=== PATIENT | female | born 2000 | race American Indian/Alaskan Native ===

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

== ENCOUNTER 2018-08-19 13:08 | Outpatient (CLI) | payer OTHER | END 2018-08-19 13:09 | disposition home or self-care (01) | LOC: LAB 13:08 | PROVIDERS: ATTEND Obstetrics & Gynecology | CPT/HCPCS: 86850; 86900; 86901 ==

== ENCOUNTER 2018-10-29 17:24 | Outpatient (CLI) | payer MEDICAID ==
[2018-10-29 20:27] VITALS: BP 128/62
--- NOTE | 2018-10-29 20:42 | Ultrasound Report ---
US OB limited, US OB BPP wo non-stress INDICATION / CLINICAL INFORMATION: CASTRO. Assess well-being COMPARISON: None available. FINDINGS: breathing movement = 2 Gross body movement = 2 tone = 2 Qualitative amniotic fluid volume = 2 Total biophysical score = 8/8 Amniotic fluid index is 12.3 cm. Presentation is Cephalic. heart rate is 148 beats per minute. There is a grade 3 placenta. IMPRESSION: biophysical profile = 10/27 Amniotic fluid index is within normal limits. Signer Name: Chapincito Frost MD Signed: 10/29/2018 8:38 PM Workstation Name: [id number]
== END 2018-10-29 20:55 | disposition home or self-care (01) ==
LOC: TRG 17:24
PROVIDERS: ATTEND Obstetrics & Gynecology
DX: O47.1 False labor at or after 37 completed weeks of gestation (principal); Z3A.39 39 weeks gestation of pregnancy
CPT/HCPCS: 59025; 76815; 76819

== ENCOUNTER 2018-10-30 02:27 | Inpatient (IN) | payer MEDICAID ==
[2018-10-30] MEDS ORDERED: NORCO 5/325 PO ONE (05:06)
[2018-10-30] MEDS ORDERED: XYLOCAINE 2% INFILTRATI ONE (07:58)
[2018-10-30] MEDS ORDERED: ZOFRAN IV PRN (07:58)
[2018-10-30] MEDS ORDERED: BRETHINE SUB-Q PRN (07:58)
[2018-10-30] MEDS ORDERED: PITOCin/NS 20 UNIT/1000ML DRIP 20 UNITS/1,000 ML BAG IV SCH (08:00)
[2018-10-30] MEDS ORDERED: AMPICILLIN/NS 2 GM/100 ML 2 GM/100 ML BAG IV ONE (08:08)
--- NOTE | 2018-10-30 08:16 | History and Physical Report ---
History of Present Illness Date of examination: 10/30/18 Date of admission: 10/30/18 07:09 Chief complaint: Labor History of present illness: 18 year old presents to L&D in active labor. Patient denies leaking of fluid or vaginal bleeding. Patient received care at [facility]; was able to access records. LMP 01/25/18. EDC 11/01/18. significant for the following: abnormal quad screen (increased risk for trisomy 21; amnio normal); chlamydia early in (treated and cured); late transfer of care at 29 weeks; GBS bacteriuria; rubella nonimmune and varicella nonimmune; anemia (supplemented with iron). labs are as follows: A+, antibody screen negative, hepatitis B surface antigen negative, HIV negative, RPR nonreactive, chlamydia negative, gonorrhea negative, GBS positive, hemoglobin electrophoresis normal, 1 hour sugar test 110, rubella nonimmune, varicella nonimmune. 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 denies: gonorrhea, hepatitis B, hepatitis C, herpes, HIV, syphilis, trichomonas Family/Genetic History: none Social history: single, lives with family, full code. denies: smoking, alcohol abuse, prescription drug abuse, IV drug use - Obstetrical History Expected Date of Delivery: 11/01/18 Actual Gestation: 39 Week(s) 5 Day(s) : 1 Para: 0 Hx # Term Pregnancies: 0 Number of Pregnancies: 0 Spontaneous Abortions: 0 Induced : 0 Number of Living Children: 0 Medications and Allergies Allergies Allergy/AdvReac Type Severity Reaction Status Date / Time No Known Allergies Allergy Verified 08/12/17 19:04 Active Meds: Active Medications Butorphanol Tartrate (Stadol) 2 mg IV Q2H PRN PRN Reason: Pain , Severe (7-10) Ephedrine Sulfate (Ephedrine Sulfate) 10 mg IV Q2M PRN PRN Reason: Hypotension Oxytocin/Sodium Chloride (Pitocin/Ns 20 Unit/1000ml Drip) 20 units in 1,000 mls @ 125 mls/hr IV DIRECT PAULY Lactated Ringer's (Lactated Ringers) 1,000 mls @ 125 mls/hr IV DIRECT PAULY Ampicillin Sodium (Ampicillin/Ns 2 Gm/100 Ml) 2 gm in 100 mls @ 100 mls/hr IV ONCE ONE; Protocol Stop: 10/30/18 09:07 Lidocaine (Xylocaine 2%) 20 ml INFILTRATI ONCE ONE Stop: 10/30/18 07:59 Ondansetron HCl (Zofran) 4 mg IV Q8H PRN PRN Reason: Nausea And Vomiting Terbutaline Sulfate (Brethine) 0.25 mg SUB-Q ONCE PRN PRN Reason: Hyperstimulation/Hypertonicity Review of Systems All systems: negative (regular contractions) - Vital Signs Vital signs: Vital Signs Pulse BP 96 H 137/89 10/30/18 02:42 10/30/18 02:42 Temp Pulse Resp BP Pulse Ox 98.1 F 112 H 18 118/69 10/30/18 02:43 10/30/18 07:58 10/30/18 05:24 10/30/18 07:58 - Physical Exam Abdomen: Positive: normal appearance, soft. Negative: distention, tenderness, guarding, rigidity Genitourinary (Female): Positive: normal external genitalia, normal perenium. Negative: perineal/vulvar lesions (no lesions seen on careful exam with bright light upon admission) Vagina: Positive: normal moisture Uterus: Positive: enlarged. Negative: tender Anus/Rectum: Positive: normal perianal skin Extremities: Positive: normal. Negative: tenderness, edema - Obstetrical FHR: category 1 Uterine Contraction Monitor Mode: External Cervical Dilatation: 4.5 Cervical Effacement Percentage: 80 station: -2 Uterine Contraction Pattern: Regular Uterine Contraction Intensity: Moderate Results All other labs normal. Assessment and Plan A: at 39 weeks, 5 days gestation. Active labor. GBS positive. P: Admit. GBS prophylaxis. Continuous EFM. Anticipate vaginal .
[2018-10-30] MEDS: STADOL IV PRN ×2 (08:55→11:24)
[2018-10-30] MEDS: LACTATED RINGERS 1,000 ML IV SCH ×3 (08:56→14:12)
[2018-10-30 11:05] LABS: Hepatitis C Virus Antibody Non-Reactive (NonReactive)
[2018-10-30 11:29] LABS: Hematocrit 36.3 % (30.3-42.9); Hemoglobin 12.1 gm/dl (10.1-14.3); Mean Corpuscular HGB Conc 33 % (30-34); Mean Corpuscular Volume 85 fl (79-97); Platelet Count 262 K/mm3 (140-440); Red Blood Count 4.28 M/mm3 (3.65-5.03); Red Cell Distribution Width 14.6 % (13.2-15.2)
[2018-10-30] MEDS ORDERED: SUBLIMAZE ONE (12:16)
[2018-10-30] MEDS ORDERED: MARCAINE 0.25% INFILTRATI ONE (12:16)
[2018-10-30] MEDS ORDERED: NARCAN 2 MG/2 ML IV PRN (12:17)
--- NOTE | 2018-10-30 12:18 | Anesthesia Consultation ---
Anesthesia Consult and Med Hx Date of service: 10/30/18 - Airway Anesthetic Teeth Evaluation: Good ROM Head & Neck: Adequate Mental/Hyoid Distance: Adequate Mallampati Class: Class II Intubation Access Assessment: Good - Pulmonary Exam CTA: Yes - Cardiac Exam Cardiac Exam: RRR - Pre-Operative Health Status ASA Pre-Surgery Classification: ASA2, Emergency Proposed Anesthetic Plan: Epidural - Pulmonary Hx Asthma: No - Cardiovascular System Hx Hypertension: No - Central Nervous System Hx Seizures: No Hx Psychiatric Problems: No - Endocrine Hx Renal Disease: No Hx Hypothyroidism: No Hx Hyperthyroidism: No - Hematic Hx Anemia: No Hx Sickle Cell Disease: No - Other Systems Hx Alcohol Use: No
[2018-10-30] MEDS: AMPICILLIN/NS 1 GM/50 ML 1 GM/50 ML BAG IV SCH ×3 (14:07→22:10)
[2018-10-30] MEDS: fentaNYL-BUPIV 2 MCG/ML-0.125% 200 MCG/100 ML BAG EPIDURAL SCH ×2 (14:12→21:32)
--- NOTE | 2018-10-30 15:33 | Event Note ---
Date: 10/30/18 Patient is comfortable after receiving epidural. SVE 5.5/80/-1/bulging forebag. Category 1 heart rate tracing. Contractions have spaced. Will put in Pitocin orders for augmentation of labor. Discussed with patient risks and benefits of Pitocin augmentation of labor. Patient consented to Pitocin augmentation of labor.
[2018-10-30] MEDS: PITOCin/NS 30 UNIT/500ML 30 UNITS/500 ML BAG IV SCH ×2 (19:37→20:41)
[2018-10-31] MEDS: PITOCin/NS 30 UNIT/500ML 30 UNITS/500 ML BAG IV SCH (00:07)
[2018-10-31] MEDS: AMPICILLIN/NS 1 GM/50 ML 1 GM/50 ML BAG IV SCH (01:39)
--- NOTE | 2018-10-31 04:52 | Event Note ---
Date: 10/31/18 Patient states she feels she needs to push. SVE: rim/100/0. Small forebag felt.
--- NOTE | 2018-10-31 07:08 | Procedure Note ---
OB Delivery Note - Delivery Date of Delivery: 10/31/18 Surgeon: KEITH URBINA Estimated blood loss: 200cc - Vaginal Delivery presentation: vertex Delivery position: OA Intrapartum events: meconium Delivery induction: none Delivery augmentation: pitocin Delivery monitor: external FHT, external uterine Route of delivery: Delivery placenta: spontaneous Delivery cord: 3 umbilical vessels Episiotomy: none Delivery laceration: none Anesthesia: epidural Delivery comments: Spontaneous vaginal delivery at 05:26 of liveborn female weighing 7 lb. 2 oz. over intact perineum with apgars of 8/9. Epidural anesthesia. Meconium stained amniotic fluid noted with SROM just before delivery; NICU team in attendance at . Baby was vigorous and was placed skin to skin with mom immediately after . Spontaneous cry and respirations. Baby bulb suctioned and dried. 3 vessel cord double clamped and cut. Spontaneous delivery of intact placenta and membranes. EBL 200 cc. No lacerations noted. Vaginal sweep negative. Sponge count correct. Mother and baby stable.
[2018-10-31] MEDS ORDERED: TUCKS PAD TP PRN (08:34)
[2018-10-31] MEDS ORDERED: LANSINOH TP PRN (08:34)
[2018-10-31] MEDS ORDERED: TYLENOL PO PRN (08:34)
[2018-10-31] MEDS ORDERED: PHENERGAN PO PRN (08:34)
[2018-10-31] MEDS ORDERED: PHENERGAN PR PRN (08:34)
[2018-10-31] MEDS ORDERED: ZOFRAN IV PRN (08:34)
[2018-10-31] MEDS ORDERED: BENADRYL PO PRN (08:34)
[2018-10-31] MEDS: IBUPROFEN PO SCH ×3 (08:58→23:51)
[2018-10-31] MEDS ORDERED: SODIUM CHLORIDE FLUSH SYRINGE 10 ML IV NR (09:00)
[2018-10-31] MEDS ORDERED: DULCOLAX PR PRN (10:00)
[2018-10-31] MEDS: PRENATAL VITAMIN PO SCH (10:34)
[2018-10-31] MEDS: FEOSOL PO SCH (10:34)
[2018-10-31] MEDS: NORCO 5/325 PO PRN (10:35)
[2018-10-31] MEDS ORDERED: MILK OF MAGNESIA PO PRN (22:00)
[2018-11-01 05:14] LABS: Hematocrit 31.9 % (30.3-42.9); Hemoglobin 10.5 gm/dl (10.1-14.3)
[2018-11-01] MEDS: IBUPROFEN PO SCH ×3 (05:35→23:53)
[2018-11-01] MEDS: FEOSOL PO SCH (10:18)
[2018-11-01] MEDS: NORCO 5/325 PO PRN ×3 (10:18→22:13)
[2018-11-01] MEDS: PRENATAL VITAMIN PO SCH (10:18)
--- NOTE | 2018-11-01 12:13 | Progress Note ---
Assessment and Plan A: PPD#1 s/p Stable P: Routine PP orders Anticipate discharge home in 24-48 hours Subjective - Subjective Date of service: 11/01/18 Principal diagnosis: PPD#1 s/p Patient reports: appetite normal, voiding normally, pain well controlled, ambulating normally [place]: doing well, other (breast/bottle) Objective - Vital Signs Latest vital signs: Vital Signs Temp Pulse Resp BP Pulse Ox 11/01/18 10:18 20 11/01/18 08:18 98.7 F 84 18 132/92 98 11/01/18 05:35 18 11/01/18 01:48 98.5 F 84 18 134/78 97 10/31/18 23:51 20 10/31/18 17:52 98 F 90 18 121/70 10/31/18 17:44 18 10/31/18 12:15 97.9 F 117 H 18 103/72 Intake and Output 10/31/18 11/01/18 11/01/18 23:59 07:59 15:59 Intake Total 480 720 360 Output Total 700 Balance -220 720 360 Intake: Oral 480 Intake, Free Water 720 360 Output: Urine 700 Indwelling Catheter 700 Other: Total, Intake Amount 480 Total, Output Amount 400 # Voids Void 2 1 - Exam Breasts: Present: normal, Cardiovascular: Present: Normal S1, Normal S2, No murmurs Lungs: Present: Clear to auscultation, Normal air movement Abdomen: Present: normal appearance, soft, normal bowel sounds. Absent: distention Vulva: both: normal Uterus: Present: firm, fundal height at umbilicus Extremities: Present: normal Deep Tendon Reflex Grade: Normal +2
--- NOTE | 2018-11-01 12:15 | Discharge Summary ---
Providers - Providers Date of Admission: 10/30/18 07:09 Date of discharge: 11/02/18 Attending physician: BHAVYA DELANEY MD Primary care physician: BHAVYA DELANEY MD Hospitalization Reason for admission: active labor Delivery: Procedure details: See H&P and delivery note Episiotomy: none Laceration: none Other procedures: none complications: none Discharge diagnosis: IUP at term delivered [place] baby: female Condition at discharge: Good Disposition: DC-01 TO HOME OR SELFCARE Plan - Provider Discharge Summary Activity: routine, no sex for 6 weeks, no heavy lifting 4 weeks, no strenuous exercise Diet: routine Instructions: routine Additional instructions: [] Smoking cessation referral if applicable(refer to patient education folder for contact #) [] Refer to [facility] Booklet Call your doctor immediately for: * Fever > 100.5 * Heavy vaginal bleeding ( >1 pad per hour) * Severe persistent headache * Shortness of breath * Reddened, hot, painful area to leg or breast * Drainage or odor from incision. * Keep incision clean and dry at all times and follow doctor's instructions regarding bathing/showering - Follow up plan Follow up: BHAVYA DELANEY MD [Primary Care Provider] - 6 Weeks
[2018-11-02] MEDS: IBUPROFEN PO SCH ×2 (05:45→11:58)
[2018-11-02] MEDS: PRENATAL VITAMIN PO SCH (11:57)
[2018-11-02] MEDS: FEOSOL PO SCH (11:58)
[2018-11-02 15:58] VITALS: BP 130/80
== END 2018-11-02 16:00 | disposition home or self-care (01) | DRG 775 ==
LOC: TRG 02:27 → LD 07:09 → TRG 07:09 → OB 10-31 09:23
PROVIDERS: ADMIT Obstetrics & Gynecology; ATTEND Obstetrics & Gynecology
PROC: 10E0XZZ Delivery of Products of Conception, External Approach (ICD-10-PCS; principal; 2018-10-31)
PROC: 3E0R3BZ Introduction of Anesthetic Agent into Spinal Canal, Percutaneous Approach (ICD-10-PCS; 2018-10-31)
PROC: 00HU33Z Insertion of Infusion Device into Spinal Canal, Percutaneous Approach (ICD-10-PCS; 2018-10-31)
DX: O99.824 Streptococcus B carrier state complicating childbirth (principal); O77.0 Labor and delivery complicated by meconium in amniotic fluid; Z37.0 Single live birth; Z3A.39 39 weeks gestation of pregnancy
CPT/HCPCS: 36415; 83036; 85014; 85018; 85027; 86592; 86706; 86762; 86803; 86850; 86900; 86901; 87806; G0378; J0290; J0595; J2405; J2590; J3010; J7120

== ENCOUNTER 2019-04-19 00:04 | Emergency (ER) | payer BC, OTHER ==
[2019-04-19 01:34] LABS: Basophils % (Auto) 0.9 % (0.0-1.8); Eosinophils # (Auto) 0.3 K/mm3 (0.0-0.4); Eosinophils % (Auto) 5.7 % (0.0-4.3); Hematocrit 38.8 % (30.3-42.9); Lymphocytes % (Auto) 23.6 % (13.4-35.0); Mean Corpuscular HGB Conc 33 % (30-34); Mean Corpuscular Volume 84 fl (79-97); Monocytes # (Auto) 0.5 K/mm3 (0.0-0.8); Monocytes % (Auto) 11.8 % (0.0-7.3); Platelet Count 372 K/mm3 (140-440); Red Blood Count 4.62 M/mm3 (3.65-5.03); Red Cell Distribution Width 13.8 % (13.2-15.2)
[2019-04-19 02:00] LABS: Alanine Aminotransferase 25 units/L (7-56); Albumin 4.6 g/dL (3.9-5); BUN/Creatinine Ratio 10; Blood Urea Nitrogen 7 mg/dL (7-17); Calcium 9.9 mg/dL (8.4-10.2); Hemolysis Index 29
[2019-04-19 02:35] LABS: Bilirubin,Urine NEG (Negative); Blood,Urine NEG (Negative); Color,Urine Straw (Yellow); Mucus,Urine FEW /HPF; Protein,Urine <15 mg/dL mg/dL (Negative); Urobilinogen,Urine < 2.0 mg/dL (<2.0); WBC,Urine < 1.0 /HPF (0.0-6.0)
[2019-04-19 02:45] LABS: HCG Qualitative,Urine Negative (Negative)
[2019-04-19 04:48] VITALS: BP 107/53
[2019-04-19] MEDS ORDERED: ACETAMINOPHEN 500 MG TAB ONE (06:06)
[2019-04-19] MEDS ORDERED: diphenhydrAMINE 25 MG CAP PO ONE ×2 (06:06→06:07)
[2019-04-19] MEDS ORDERED: ONDANSETRON 4 MG ODT TAB ONE (06:07)
[2019-04-19] MEDS ORDERED: ONDANSETRON 4 MG ODT TAB PO ONE (06:07)
[2019-04-19] MEDS ORDERED: ACETAMINOPHEN 500 MG TAB PO ONE (06:07)
--- NOTE | 2019-04-19 07:33 | Emergency Department Report ---
Minor Respiratory - HPI Chief Complaint: Abdominal Pain Stated Complaint: N/V/D Time Seen by Provider: 04/19/19 07:25 Duration: 3 Days Pain Location: Throat, Nose, Chest Severity: mild Minor Respiratory: Yes Rhinorrhea, Yes Able to Tolerate Fluids, Yes Cough, No Sore Throat, No Ear Pain, No Sick Contacts, No Hemoptysis, No Chest Pain, No Shortness of Breath, No Fever Other History: 18 YO AA FEMALE COMES TO ER LAST NIGHT, NOW IN ER 8 HOURS, WITH NAUSEA, VOMITING AND DIARRHEA. NO ABD PAIN. NO DYSURIA. NO FEVER. NO CHILLS. NO SICK CONTACTS.SHE IS CONCERNED SHE IS GONNA GIVE IT TO HER 6 M OLD. ED Review of Systems ROS: Stated complaint: N/V/D Other details as noted in HPI Comment: All other systems reviewed and negative ED Past Medical Hx - Past Medical History Previous Medical History?: No Hx Hypertension: No Hx Congestive Heart Failure: No Hx Diabetes: No Hx Deep Vein Thrombosis: No Hx Renal Disease: No Hx Sickle Cell Disease: No Hx Seizures: No Hx Asthma: No Hx COPD: No Hx HIV: No - Surgical History Past Surgical History?: No - Family History Family history: no significant - Social History Smoking Status: Current Every Day Smoker Substance Use Type: None - Medications Home Medications: Home Medications Medication Instructions Recorded Confirmed Last Taken Type Ondansetron [Zofran Odt] 4 mg PO Q8HR PRN #10 tab.rapdis 04/19/19 Unknown Rx Minor Respiratory Exam - Exam General: Vital signs noted. No distress. Alert and acting appropriately. HEENT: Yes Pharyngeal Erythema, Yes Moist Mucous Membranes, Yes Rhinorrhea, No Pharyngeal Exudates, No Conjuctival Injection, No Frontal Tenderness, No Maxillary Tenderness Ear: Neither TM Bulge, Neither TM Erythema, Neither EAC Pain, Neither EAC Discharge Neck: Yes Supple, No Adenopathy Lungs: Yes Good Air Exchange, No Wheezes, No Ronchi, No Stridor, No Cough, No Labored Respirations, No Retractions, No Use of Accessory Muscles, No Other Abnormal Lung Sounds Heart: Yes Regular, No Murmur Abdomen: Yes Normal Bowel Sounds, No Tenderness, No Peritoneal Signs Skin: No Rash, No Edema Neurologic: Alert and oriented, no deficits. Musculoskeletal: Unremarkable. ED Course Vital Signs 04/19/19 04:45 Pulse Rate 83 Respiratory 18 Rate Blood Pressure 107/53 [Left] O2 Sat by Pulse 100 Oximetry ED Medical Decision Making - Lab Data Result diagrams: 04/19/19 00:55 04/19/19 00:55 - Medical Decision Making Labs 04/19/19 04/19/19 04/19/19 00:55 00:55 Unknown WBC 4.4 L RBC 4.62 Hgb 13.0 Hct 38.8 MCV 84 MCH 28 MCHC 33 RDW 13.8 Plt Count 372 Lymph % (Auto) 23.6 [place] % (Auto) 11.8 H Eos % (Auto) 5.7 H Baso % (Auto) 0.9 Lymph # 1.0 L [place] # 0.5 Eos # 0.3 Baso # 0.0 Seg Neutrophils % 58.0 Seg Neutrophils # 2.5 Sodium 140 Potassium 4.1 Chloride 102.6 Carbon Dioxide 22 Anion Gap 20 BUN 7 Creatinine 0.7 Estimated GFR > 60 BUN/Creatinine Ratio 10 Glucose 122 H Calcium 9.9 Total Bilirubin 0.20 AST 25 ALT 25 Alkaline Phosphatase 67 Total Protein 7.5 Albumin 4.6 Albumin/Globulin Ratio 1.6 Urine Color Straw Urine Turbidity Clear Urine pH 6.0 Ur Specific [place] 1.003 Urine Protein <15 mg/dl Urine Glucose (UA) Neg Urine Ketones Neg Urine Blood Neg Urine Nitrite Neg Urine Bilirubin Neg Urine Urobilinogen < 2.0 Ur Leukocyte Esterase Tr Urine WBC (Auto) < 1.0 Urine RBC (Auto) 1.0 U Epithel Cells (Auto) 1.0 Urine Mucus Few Urine HCG, Qual Negative Vital Signs 04/19/19 04:45 Pulse Rate 83 Respiratory 18 Rate Blood Pressure 107/53 [Left] O2 Sat by Pulse 100 Oximetry - Differential Diagnosis URI/GASTROENTERITIS Critical care attestation.: If time is entered above; I have spent that time in minutes in the direct care of this critically ill patient, excluding procedure time. ED Disposition Clinical Impression: Gastroenteritis, Viral illness Disposition: - TO HOME OR SELFCARE Is pt being admited?: No Does the pt Need Aspirin: No Condition: Stable Instructions: Viral Syndrome (ED) Additional Instructions: STAY WELL HYDRATED WITH WATER MOTRIN OR TYLENOL FOR PAIN OR FEVER GOOD HAND WASHING OVER THE COUNTER SYMPTOM RELIEF ZOFRAN FOR NAUSEA SLOWLY INCREASE YOUR ORAL INTAKE BANANA RICE APPLESAUCE TOAST AND THEN ONE FOOD AT A TIME FOLLOW UP WITH PCP KHUSHBOO IF NO BETTER REFERRAL BELOW Referrals: CARBUCCIA,JOSH, MD [Staff Physician] - 3-5 Days Time of Disposition: 07:32
== END 2019-04-19 07:30 | disposition home or self-care (01) ==
LOC: ED 00:04
DX: K52.9 Noninfective gastroenteritis and colitis, unspecified (principal); B34.9 Viral infection, unspecified; F17.200 Nicotine dependence, unspecified, uncomplicated; Z79.899 Other long term (current) drug therapy
CPT/HCPCS: 36415; 80053; 81001; 81025; 85025; Q0162

== ENCOUNTER 2020-04-30 18:37 | Outpatient (CLI) | payer MEDICAID ==
[2020-04-30 21:21] VITALS: BP 119/58
--- NOTE | 2020-04-30 23:31 | Ultrasound Report ---
ULTRASOUND OBSTETRIC LIMITED ULTRASOUND BIOPHYSICAL PROFILE INDICATION / CLINICAL INFORMATION: WELLBEING. Clinical Gestational Age (GA) in weeks, days: 40, 0 TECHNIQUE: Transabdominal. COMPARISON: None available. FINDINGS: BREATHING MOVEMENT = 2 GROSS BODY MOVEMENT = 2 TONE = 2 QUALITATIVE AMNIOTIC FLUID VOLUME = 2 TOTAL BIOPHYSICAL SCORE = 8/8 HEART RATE (beats per minute): 162 AMNIOTIC FLUID INDEX (cm) = 12.3 (normal = 7-24 cm) PRESENTATION: Cephalic. ADDITIONAL FINDINGS: None. IMPRESSION: 1. Biophysical Score = 8/8 2. Normal amniotic fluid index. Signer Name: Flory Driver MD Signed: 04/30/2020 11:27 PM Workstation Name: [id number]
== END 2020-04-30 23:00 | disposition home or self-care (01) ==
LOC: TRG 18:37 → APU 18:38 → TRG 23:00
PROVIDERS: ATTEND Obstetrics & Gynecology
DX: Z34.93 Encounter for supervision of normal pregnancy, unspecified, third trimester (principal); Z3A.40 40 weeks gestation of pregnancy
CPT/HCPCS: 59025; 76815; 76819